=== PATIENT | male | born 1955 | race Caucasian/White ===

== ENCOUNTER → 2021-02-04 01:20 | Outpatient (CLI) | payer OTHER, SELFPAY ==
[2021-02-04 18:53] LABS: SARS-CoV-2 RNA PCR Negative
== END ==
PROVIDERS: PCP Family Medicine; Visit Provider Internal Medicine Gastroenterology
DX: Z01.812 Encounter for preprocedural laboratory examination (principal); Z20.822 Contact with and (suspected) exposure to COVID-19
CPT/HCPCS: C9803; U0003; U0005

== ENCOUNTER 2021-02-07 01:11 | Day surgery (SDC) | payer OTHER, SELFPAY ==
[2021-01-26 10:05] VITALS: BMI 29.2
[2021-02-07 08:26] LABS: Glucose Point of Care 99 (65-105)
[2021-02-07 08:27] VITALS: BP 163/83; PULSE 90; RESP 18; TEMP 36.6; O2SAT 100; BMI 28.0
[2021-02-07] MEDS: LACTATED RINGERS 1,000 ML 150 ML IV CONT (08:37)
--- NOTE | 2021-02-07 08:46 | PM.HPGS ---
History of Present Illness History of Present Illness Consent: Risks, benefits, and alternatives have been discussed and questions answered. Patient agrees to proceed with procedure. Chief complaint: Neoplasm Screening Narrative: Horacio Brian Jr. is a 65 year old male referred for colon cancer s Review of Systems Review of Systems: All systems reviewed & are unremarkable except as noted in HPI and below PMFSH Past Medical History Medical History Attention-deficit hyperactivity disorder, unspecified type Essential (primary) hypertension Mixed hyperlipidemia Obstructive sleep apnea (adult) (pediatric) Family History Family History Mother Depression Hypertension Family history of Parkinson's disease Family history of elevated blood lipids Sibling Depression Hypertension Father Family history of cardiovascular disease Other No family history of cardiovascular disease No family history of malignant neoplasm Social History Social History Smoking packs per day: 1 Smoking cigarettes per day: 20.0 Years smoked: 10 Smoking pack-years: 10.00 Smoking status: Former smoker Alcohol intake: current Drinks per week: 6 Living arrangements: with family Gender identity (if verbalized by the patient): Male Spiritual care concerns: No Meds Home Medications and Allergies Home Medications Medication Instructions Recorded Confirmed Type losartan 100 1 tablet PO DAILY #90 tablet 12/31/19 02/07/21 Rx mg-hydrochlorothiazide 12.5 mg tablet fluoxetine 40 mg capsule 40 mg PO DAILY #90 cap 11/09/20 02/07/21 Rx atorvastatin 20 mg tablet 20 mg PO DAILY #90 tablet 11/17/20 02/07/21 Rx metformin 500 mg tablet,extended 500 mg PO DAILY #90 tablet 01/10/21 02/07/21 Rx release 24 hr aspirin [Aspir-81] 81 mg PO DAILY 01/26/21 02/07/21 History Allergies Allergy/AdvReac Type Severity Reaction Status Date / Time hydrochlorothiazide Allergy Unknown cough Verified 02/07/21 08:25 [Zestoretic] lisinopril Allergy Unknown cough Verified 02/07/21 08:25 Vital Signs Vital Signs - 24 hr 02/07/21 08:27 Temperature 36.6 C Pulse Rate 90 Respiratory Rate 18 Blood Pressure 163/83 H Pulse Oximetry 100 Exam Resp: Auscultation: clear to auscultation bilaterally Cardio: Rate: regular rate Rhythm: regular rhythm GI: GI Palp: Yes Soft to palpation and No Tenderness to palpation present (GI) Assessment and Plan Assessment and plan (1) Colon cancer screening: Code(s): Z12.11 - Encounter for screening for malignant neoplasm of colon Status: Acute Assessment and Plan: Colonoscopy with possible biopsy or polypectomy or cautery or injection of substances.
--- NOTE | 2021-02-07 09:08 | WPDANESEPPF ---
Anes - Initial Pre Proc Eval Procedure: Operation Date: 02/07/21 09:30 Proposed Procedures p Screening Colonoscopy - Kal Anderson MD Date/Time: 02/07/21 09:08 Surgeon: Kal Anderson MD Pre Op Diagnosis: Neoplasm Screening Patient Data Age: 65 Gender: M Height: 6 ft Weight: 93.7 kg Last Vital Signs Temp 97.9 F 02/07/21 08:27 Pulse 90 02/07/21 08:27 Resp 18 02/07/21 08:27 BP 163/83 H 02/07/21 08:27 Pulse Ox 100 02/07/21 08:27 Allergies Allergy/AdvReac Type Severity Reaction Status Date / Time hydrochlorothiazide Allergy Unknown cough Verified 02/07/21 08:25 [Zestoretic] lisinopril Allergy Unknown cough Verified 02/07/21 08:25 Home Medications Medication Instructions Recorded Confirmed Type losartan 100 1 tablet PO DAILY #90 tablet 12/31/19 02/07/21 Rx mg-hydrochlorothiazide 12.5 mg tablet fluoxetine 40 mg capsule 40 mg PO DAILY #90 cap 11/09/20 02/07/21 Rx atorvastatin 20 mg tablet 20 mg PO DAILY #90 tablet 11/17/20 02/07/21 Rx metformin 500 mg tablet,extended 500 mg PO DAILY #90 tablet 01/10/21 02/07/21 Rx release 24 hr aspirin [Aspir-81] 81 mg PO DAILY 01/26/21 02/07/21 History Laboratory Tests 02/07/21 08:23 POC Capillary Glucose 99 mg/dl mg/dl (65-105) Patient hx anesthesia problems: none Family hx anesthesia problems: none PMFSH Past Medical History Medical History (Updated 02/07/21 @ 09:06 by Angel Amanda MD) Attention-deficit hyperactivity disorder, unspecified type Essential (primary) hypertension Mixed hyperlipidemia Obstructive sleep apnea (adult) (pediatric) Family History Family History Mother Depression Hypertension Family history of Parkinson's disease Family history of elevated blood lipids Sibling Depression Hypertension Father Family history of cardiovascular disease Other No family history of cardiovascular disease No family history of malignant neoplasm Social History Social History Smoking packs per day: 1 Smoking cigarettes per day: 20.0 Years smoked: 10 Smoking pack-years: 10.00 Smoking status: Former smoker Alcohol intake: current Drinks per week: 6 Living arrangements: with family Gender identity (if verbalized by the patient): Male Spiritual care concerns: No Anes - Eval Final PreProcedure Day of Procedure 02/07/21 09:08 Patient weight: overweight Heart: regular rate and rhythm Lungs: clear to auscultation Airway: Mallampati scale class II Neurological: alert and oriented Last oral intake: >/= 8 hours ASA classification: III Emergent: no Anesthetic plan: proceed Anesthesia type and monitoring: general GIVS and standard monitoring Informed Consent: The patient's anesthetic plan and its attendant risks and benefits were discussed with the patient/family/POA. Questions were solicited and answers provided to the satisfaction of the patient/family/POA.
[2021-02-07 09:42] VITALS: BP 113/62; PULSE 72; RESP 18; O2SAT 99
[2021-02-07 09:52] VITALS: BP 120/69; PULSE 68; RESP 21; O2SAT 99
[2021-02-07 10:02] VITALS: BP 131/72; PULSE 62; RESP 15; O2SAT 100
[2021-02-07 10:12] VITALS: BP 132/78; PULSE 63; RESP 18; O2SAT 100
== END 2021-02-07 10:22 | disposition home or self-care (01) ==
PROVIDERS: PCP Family Medicine; Visit Provider Internal Medicine Gastroenterology
PROC: 0DJD8ZZ Inspection of Lower Intestinal Tract, Via Natural or Artificial Opening Endoscopic (ICD-10-PCS; CPT 45378; principal; 2021-02-07 09:30)
DX: Z12.11 Encounter for screening for malignant neoplasm of colon (principal); K62.1 Rectal polyp; I10 Essential (primary) hypertension; E78.2 Mixed hyperlipidemia; G47.33 Obstructive sleep apnea (adult) (pediatric); F90.9 Attention-deficit hyperactivity disorder, unspecified type; Z87.891 Personal history of nicotine dependence
CPT/HCPCS: 45380; 82948; 88305; C9803; J2704; J7120; U0003; U0005

== ENCOUNTER → 2022-06-18 12:34 | Outpatient (CLI) | payer MEDICARE, OTHER, SELFPAY ==
--- NOTE | ~2022-06-18 | XR_ITS ---
EXAMINATION: XR chest 2V 06/18/2022 12:48 INDICATION: Abnormal weight loss for 7 months. PROCEDURE: 2 view chest COMPARISON: No prior studies for comparison. FINDINGS: The lungs are clear. The cardiomediastinal silhouette is within normal limits. There are no pleural effusions. There is no pneumothorax suspected. IMPRESSION: 1: NO ACUTE CARDIOPULMONARY DISEASE. Reviewed, dictated and finalized at location A.
== END ==
PROVIDERS: PCP Emergency Medicine; Visit Provider Physician Assistant
DX: R63.4 Abnormal weight loss (principal)
CPT/HCPCS: 71046

== ENCOUNTER 2024-02-03 07:37 | Outpatient (CLI) | payer MEDICARE, SELFPAY ==
--- NOTE | ~2024-02-03 | US_ITS ---
EXAMINATION: US aorta [facility] scr[facility] DATE: 02/03/2024 08:50 INDICATION: Abdominal aortic aneurysm screening in a prior smoker TECHNIQUE: Grayscale, color Doppler, and pulsed Doppler images of the aorta and common iliac arteries were obtained. COMPARISON: None. FINDINGS: The proximal aorta measures 2.5 cm. The mid aorta measures 1.8 cm. The distal aorta measures 1.9 cm. The right common iliac artery measures 1.0 cm. The left common iliac artery measures 1.0 cm. Incident ally noted 3.1 cm anechoic cyst in the left hepatic lobe. IMPRESSION: 1. Normal caliber abdominal aorta. Reviewed, dictated and finalized at location B.
== END 2024-02-03 07:38 | disposition home or self-care (01) ==
PROVIDERS: PCP Family Medicine; Visit Provider Physician Assistant
DX: Z87.891 Personal history of nicotine dependence (principal)
CPT/HCPCS: 76706

== ENCOUNTER 2025-05-19 10:47 | Outpatient (CLI) | payer MEDICARE, SELFPAY ==
--- NOTE | ~2025-05-19 | XR_ITS ---
EXAM/ PROCEDURE: XR hip LT 2V w AP pelvis - 05/19/2025 10:49 CDT HISTORY: 70 years old Male with M54.50 - Low back pain, unspecified COMPARISON: None available TECHNIQUE: Three view(s) FINDINGS/ IMPRESSION: There are no fractures or dislocations.Joint space narrowing, subchondral sclerosis, subchondral cyst formation and osteophyte formation, compatible with [id number] osteoarthritis. Reviewed, dictated and finalized at location A.
--- NOTE | ~2025-05-19 | XR_ITS ---
EXAM/ PROCEDURE: XR lumbar spine 2-3V - 05/19/2025 10:49 CDT HISTORY: 70 years old Male with M54.50 - Low back pain, unspecified COMPARISON: None available TECHNIQUE: Three view(s) FINDINGS/ IMPRESSION: There are no fractures or dislocations.Multilevel degenerative changes are seen. Reviewed, dictated and finalized at location A.
== END 2025-05-19 10:48 | disposition home or self-care (01) ==
LOC: GOSHIMG 10:48
PROVIDERS: PCP Family Medicine; Visit Provider Nurse Practitioner Family
DX: M47.816 Spondylosis without myelopathy or radiculopathy, lumbar region (principal); M25.552 Pain in left hip
CPT/HCPCS: 72100; 73502

== ENCOUNTER 2025-06-16 08:04 | Outpatient (CLI) | payer MEDICARE, SELFPAY ==
--- NOTE | ~2025-06-16 | MR_ITS ---
EXAMINATION: MR lumbar spine wo con DATE: 06/16/2025 08:38 INDICATION: Sciatica with low back pain radiating down the right leg TECHNIQUE: Magnetic resonance imaging (MRI) of the lumbar spine was performed without intravenous con trast. Sequences included sagittal T2-weighted FSE, sagittal T2-weighted FS FSE, sagittal T1-weighted FSE, and axial T2-weighted FSE. COMPARISON: None FINDINGS: 7 degrees lumbar levocurvature. 1-2 mm anterolisthesis L2 on L3, 3 mm anterolisthesis L4 on L5 and 3 mm retrolisthesis L5 on S1. Vertebral body heights are normal. Severe right-sided disc height loss wi th associated fibrofatty degenerative endplate changes at L3-L4. Additional T1 hyperintense fibrofatt y degenerative endplate change versus hemangioma underlying the superior endplate of L2. Moderate dis c height loss at L2-L3, mild to moderate disc height loss at L5-S1 and mild disc height loss at L4-L5 . The conus medullaris terminates at L2. There is normal signal in the caudal spinal cord. Paraverte bral soft tissues are unremarkable. The following disc levels are specifically discussed: T12-L1: The disc does not extend beyond the endplate margin. There is moderate bilateral facet joint osteoarthritis. There is minimal bilateral neural foraminal stenosis. There is no central canal steno sis. L1-L2: Disc is mildly bulging. There is mild right and moderate to severe left facet joint osteoarthr itis. There is mild bilateral neural foraminal stenosis. There is mild central canal stenosis. L2-L3: Disc is bulging with superimposed annular fissure and small left paracentral disc extrusion wi th disc material extending a few millimeters cephalad to the level of the inferior endplate of L2. Th ere is severe bilateral facet joint osteoarthritis. There is mild bilateral neural foraminal stenosis . There is moderate stenosis of the central canal and left and right lateral recesses. L3-L4: Disc is mildly bulging. There is mild to moderate bilateral facet joint osteoarthritis. There is moderate left and moderate to severe right neural foraminal stenosis. There is mild central canal stenosis. L4-L5: Disc is bulging with superimposed annular fissure. There is severe left and moderate to severe right facet joint osteoarthritis. There is moderate bilateral neural foraminal stenosis. There is mi ld central canal stenosis stenosis at the lateral recesses, mild on the right and moderate on the lef t. L5-S1: Disc is bulging with annular fissure. There is moderate bilateral facet joint osteoarthritis. There is moderate bilateral neural foraminal stenosis. There is no central canal stenosis. IMPRESSION: 1. Mild lumbar levocurvature with moderate to severe lumbar spondylosis most notable for moderate conner tral canal stenosis at L2-L3 and moderate to severe neural foraminal stenosis on the right at L3-L4. Reviewed, dictated and finalized at location A. IMPRESSION: 1. Mild lumbar levocurvature with moderate to severe lumbar spondylosis most no table for moderate central canal stenosis at L2-L3 and moderate to severe neura l foraminal stenosis on the right at L3-L4.
== END 2025-06-16 08:05 | disposition home or self-care (01) ==
LOC: GOSHIMG 08:05
PROVIDERS: PCP Family Medicine; Visit Provider Family Medicine
DX: M54.30 Sciatica, unspecified side (principal); M47.896 Other spondylosis, lumbar region
CPT/HCPCS: 72148